=== PATIENT | female | born 1960 | race Caucasian/White ===

== ENCOUNTER 2019-01-10 00:43 | Emergency (ER) | payer BC, MEDICAID ==
[~2019-01-10] VITALS: Ht 157.5 cm; Wt 91.8 kg
[~2019-01-10 00:43] MED LIST: ASPI-535; METO-429
[2019-01-10 00:54] VITALS: Ht 157.5 cm; Wt 91.8 kg
[2019-01-10] MEDS ORDERED: ASPIRIN 325 MG TAB PO STA (01:01)
[2019-01-10] MEDS ORDERED: hydrALAzine 20 MG INJ IV ONE (01:30)
[2019-01-10] MEDS ORDERED: NITROGLYCERIN (SL) 0.4 MG TAB SL ONE (02:30)
[2019-01-10] MEDS ORDERED: TRAZ-150 PO (03:13)
[2019-01-10] MEDS ORDERED: HYDR100T25 PO (03:13)
[2019-01-10] MEDS ORDERED: NOL20 PO (03:13)
[2019-01-10] MEDS ORDERED: ASPI-817 PO (03:13)
[2019-01-10] MEDS ORDERED: ESCI10TA48 PO (03:13)
[2019-01-10] MEDS ORDERED: ATOR20TA65 PO (03:13)
[2019-01-10] MEDS ORDERED: AMLO-147 PO (03:13)
[2019-01-10] MEDS ORDERED: LOSA100T15 PO (03:13)
[2019-01-10] MEDS ORDERED: METO-319 PO (03:13)
[2019-01-10] MEDS ORDERED: morphine 4 MG/ML VIAL IV STA (03:23)
[2019-01-10] MEDS ORDERED: ONDANSETRON 4 MG INJ IV STA (03:26)
--- NOTE | 2019-01-10 04:00 | ERD ---
ER Documentation Chief Complaint Chief Complaint CP radiating to L shoulder/upper L back X 7 hrs HPI This is a 58-year-old female with a history of hypertension hyperlipidemia, previous breast cancer and multiple other medical problems who presents to the emergency room for evaluation of chest pain. The patient states that she had chest pain for the past 5 hours and describes as a pressure-like sensation with radiation to the left arm. She localizes it to the center of her chest and denies any aggravating or relieving factors for her pain at this time. ROS All systems reviewed and are negative except as per history of present illness. Medications Home Meds Reported Medications Losartan Potassium* (Losartan Potassium*) 100 Mg Tablet, 100 MG PO DAILY for 30 Days, #30 01/10/19 Metoprolol Succinate* (Toprol XL*) 50 Mg Tab.er.24h, 50 MG PO BID for 30 Days, #60 01/10/19 Escitalopram Oxalate* (Escitalopram Oxalate*) 10 Mg Tablet, 10 MG PO DAILY for 30 Days, #45 01/10/19 Trazodone Hcl* (Desyrel*) 100 Mg Tab, 100 MG PO DAILY for 30 Days, #30 01/10/19 Atorvastatin Calcium (Atorvastatin Calcium) 20 Mg Tablet, 20 MG PO QHS for 30 Days, #30 01/10/19 Aspirin* (Aspirin* EC) 81 Mg Tablet., 81 MG PO DAILY for 30 Days, #30 01/10/19 Amlodipine Besylate* (Amlodipine Besylate*) 10 Mg Tablet, 10 MG PO DAILY for 30 Days, #30 01/10/19 Tamoxifen Citrate* (Tamoxifen Citrate*) 20 Mg Tab, 20 MG PO DAILY for 30 Days, #30 01/10/19 Hydralazine Hcl* (Hydralazine Hcl*) 100 Mg Tablet, 100 MG PO DAILY for 30 Days, #90 01/10/19 Discontinued Reported Medications Metoprolol Tartrate* (Lopressor*) 50 Mg Tablet 12/02/09 Aspirin Ec (Aspir 81) 81 Mg Tablet. 12/02/09 Allergies Allergies: Coded Allergies: No Known Drug Allergies (Unverified Allergy, Mild, 01/10/19) PMhx/Soc History of Surgery: Yes (LEFT MENISCUS ) Anesthesia Reaction: No Hx Neurological Disorder: No Hx Respiratory Disorders: No Hx Cardiac Disorders: Yes (HYPERTENSION, [place]) Hx Psychiatric Problems: No Hx Miscellaneous Medical Probl: Yes (Breast CA) Hx Alcohol Use: No Hx Substance Use: No Hx Tobacco Use: No Smoking Status: Never smoker Physical Exam Vitals Vital Signs Date Temp Pulse Resp B/P (MAP) Pulse Ox O2 O2 Flow FiO2 Time Delivery Rate 01/10/19 98.0 76 18 159/90 100 Room Air 02:55 (113) 01/10/19 78 16 199/88 100 Room Air 02:16 (125) 01/10/19 74 15 209/104 98 Room Air 01:19 (139) 01/10/19 97.7 77 16 235/98 98 00:54 (143) Physical Exam INITIAL VITAL SIGNS: Reviewed by me GENERAL: The patient is well developed and appropriate for usual state of health in no apparent distress HEENT: Pupils equal, round, and reactive to light. EOMI. There is no scleral icterus. NECK: C-spine is soft and supple, there is no meningismus. There is no cervical lymphadenopathy. LUNGS: Clear to auscultation bilaterally. There are no rales, wheezes or rhonchi. HEART: Regular rate and rhythm, no murmurs, clicks, rubs or gallops. ABDOMEN: Soft, non-tender, non-distended. There are bowel sounds in all four quadrants. No rebound or guarding. EXTREMITIES: There is no peripheral cyanosis or edema. No focal swelling or erythema. NEUROLOGICAL: The patient moves all four extremities with 5/5 strength. Cranial nerves II - XII are intact. Normal gait. Alert and oriented SKIN: There is no apparent rash or petechiae. HEME/LYMPHATIC: There is no evidence of excessive bruising or lymphedema. PSYCHIATRIC: The patient does not appear anxious or depressed. Result Diagram: 01/10/19 0055 01/10/19 0055 Results 24 hrs Laboratory Tests Test 01/10/19 00:55 White Blood Count 10.4 10^3/ul Red Blood Count 4.62 10^6/ul Hemoglobin 12.9 g/dl Hematocrit 40.5 % Mean Corpuscular Volume 87.7 fl Mean Corpuscular Hemoglobin 27.9 pg Mean Corpuscular Hemoglobin Concent 31.9 g/dl Red Cell Distribution Width 13.2 % Platelet Count 374 10^3/UL Mean Platelet Volume 9.4 fl Immature Granulocytes % 0.700 % Neutrophils % 64.0 % Lymphocytes % 25.0 % Monocytes % 8.5 % Eosinophils % 1.3 % Basophils % 0.5 % Nucleated Red Blood Cells % 0.0 /100WBC Immature Granulocytes # 0.070 10^3/ul Neutrophils # 6.7 10^3/ul Lymphocytes # 2.6 10^3/ul Monocytes # 0.9 10^3/ul Eosinophils # 0.1 10^3/ul Basophils # 0.1 10^3/ul Nucleated Red Blood Cells # 0.0 10^3/ul Sodium Level 138 mmol/L Potassium Level 3.9 mmol/L Chloride Level 104 mmol/L Carbon Dioxide Level 26 mmol/L Anion Gap 8 Blood Urea Nitrogen 21 mg/dl Creatinine 0.72 mg/dl Est Glomerular Filtrat Rate mL/min > 60 mL/min Glucose Level 96 mg/dl Calcium Level 9.5 mg/dl Troponin I < 0.012 ng/ml Current Medications Medications Dose Sig/Hunter Start Time Status Last (Trade) Ordered Route PRN Stop Time Admin Dose Reason Admin Aspirin 325 mg ONCE STAT 01/10/19 DC 01/10/19 (Aspirin) PO 01:01 01:15 01/10/19 01:02 Hydralazine 10 mg ONCE ONCE 01/10/19 DC 01/10/19 HCl IV 01:30 01:15 (Apresoline) 01/10/19 01:31 1 tab ONCE ONCE 01/10/19 DC 01/10/19 Nitroglycerin SL 02:30 02:25 01/10/19 02:31 (Nitroglyceri n (Sl Tab) 0.4 Mg) Morphine 4 mg ONCE STAT 01/10/19 DC 01/10/19 Sulfate IV 03:23 03:30 (morphine) 01/10/19 03:24 Ondansetron 4 mg ONCE STAT 01/10/19 DC 01/10/19 HCl (Zofran IV 03:26 03:30 Inj) 01/10/19 03:27 Procedures/MDM EKG: Rate/Rhythm: [Normal Sinus Rhythm] QRS, ST, T-waves: [No changes consistent w/ acute ischemia] Impression: [No evidence of ischemia or arrhythmia] Chest X-ray 1V Interpreted by me: Soft Tissue: No acute abnormalities Bones: No acute abnormalities Mediastinum/Cardiac Silhouette/Lungs: [No acute abnormalities] This 58year-old female presents to the emergency room for evaluation of chest pain. The patient has multiple comorbidities. Her EKG is nonischemic chest x- ray is clear and first troponin is negative. The patient does have multiple risk factors for CAD and has not had a stress test in over a year. Patient was given nitroglycerin, aspirin, and morphine for her pain. Her pain is improved. She was given hydralazine for hypertension and hypertension has improved as well however the patient continues to have slight pain. Patient will benefit from hospitalization for serial troponins, cardiology consult. The patient is stable for transfer at this time and I have spoken to Dr. Alvarez at [facility] who accepts the patient at this time. Departure Diagnosis: Primary Impression: Chest pain Additional Impression: Uncontrolled hypertension Condition: MORAIMA Muniz DO Jan 10, 2019 04:00
[2019-01-10 05:54] VITALS: RESP 16
[2019-01-10 06:21] VITALS: BP 132/61; PULSE 69
== END 2019-01-10 07:26 | disposition left against medical advice (07) ==
LOC: E/R 00:43
DX: I10 Essential (primary) hypertension (principal); I25.2 Old myocardial infarction; Z79.82 Long term (current) use of aspirin; Z85.3 Personal history of malignant neoplasm of breast
CPT/HCPCS: 36415; 71045; 80048; 84484; 85025; 93005; 96374; 96375; J0360; J2270; J2405; Z7502; Z7610